=== PATIENT | male | born 1990 | race Caucasian/White ===

== ENCOUNTER 2020-11-05 13:55 | Emergency (ER) | payer OTHER, BC ==
[~2020-11-05] VITALS: Ht 180.3 cm; Wt 77.1 kg
[2020-11-05] MEDS ORDERED: Pepcid20 MG PO (14:29)
[2020-11-05] MEDS ORDERED: BENADRYL25 MG PO (14:29)
== END 2020-11-05 14:33 | disposition home or self-care (01) ==
LOC: ER 13:55
DX: L23.7 Allergic contact dermatitis due to plants, except food (principal)
CPT/HCPCS: 96372; 99282-25; A9270; J1100